=== PATIENT | male | born 2005 | race African-American/Black ===

== ENCOUNTER 2025-04-03 11:20 | Emergency (ER) | payer OTHER ==
[~2025-04-03] VITALS: Ht 177.8 cm; Wt 68.0 kg
[2025-04-03 12:35] VITALS: BP 128/65; TEMP 98.1; O2SAT 99
== END 2025-04-03 13:30 | disposition home or self-care (01) ==
LOC: ER 11:20
DX: K09.9 Cyst of oral region, unspecified (principal)